=== PATIENT | female | born 1960 | race Caucasian/White ===

== ENCOUNTER → 2018-06-12 | Outpatient (CLI) | payer OTHER ==
[~2018-06-12] MED LIST: ALBU90OI INH; AMOCLA875 PO; AMOX500 PO; ASPI325 PO; ASPI325EC PO; ASPI81EC PO; AZIT250 PO; Adipex-P37.5 MG PO; Aspirin EC81 MG PO; BUPR150ER PO; CALCAVITDA PO; CALCIUM CITRAT1 EAC1 PO; CHOL10002 PO; CIPR500 PO; CIPRO500 MG PO; CRUTCH4 USE; CYCL10 PO; Cipro500 MG PO; Colace100 MG PO; DIPATR PO; Dyazide 37.5-21 EACH PO; FERR325 PO; FISH1000; Ferrous Sulfat325 M2 PO; Flomax0.4 MG PO; HYDACE5 PO; HYDCHL12.5 PO; HYDMOR2 PO; Hair, Skin & N1 EACH PO; Hydrochloroth12.5 MG PO; Hydrocodone-Ap1 EA23 PO; IBUP200 PO; IBUP600 PO; KETO10 PO; METO10 PO; MULVITMIND PO; Multiple Vitam1 EAC1 PO; NITR100CA PO; Norco 5-325 Ta1 EACH PO; OXYACE5T PO; OXYC5 PO; PRAHYD1AE TOP; PROM25 PO; Percocet 10-321 EACH PO; Percocet 5-3251 EACH PO; RXHYDMOR2 PO; RXOXYACE PO; TAMS.4ER PO; TRAZ100 PO; TRIA50 PO; VENL37.5 PO; Valium5 MG PO; Zofran Odt4 MG SL; Zofran8 MG PO
== END | disposition home or self-care (01) ==
LOC: PLD 10:50 → LAB SHORT 10:50
DX: L57.8 Other skin changes due to chronic exposure to nonionizing radiation (principal); D22.39 Melanocytic nevi of other parts of face
CPT/HCPCS: 88305; 88342

== ENCOUNTER 2019-01-22 10:35 | Day surgery (SDC) | payer OTHER ==
[~2019-01-22] VITALS: Ht 170.2 cm; Wt 113.2 kg
--- NOTE | 2019-01-22 11:09 | NUR ---
Ambulatory in Day Surgery Patient states colon prep results clear. History, Chart, Medications and Allergies reviewed before start of procedure. Lungs clear T/O to Auscultation. Patient confirms NPO status and agrees with scheduled surgery. Pre-Op teaching done. Pt verbalizes understanding. Patient States Post-Procedure ride home has been arranged.
--- NOTE | 2019-01-22 13:03 | NUR ---
01/22/19 1303 Miguelito Santo PATIENT DETERMINED TO BE ASA APPROPRIATE FOR PROPOFOL SEDATION PRIOR TO START OF PROCEDURE BY . 3-LEAD EKG REVIEWED WITH PHYSICIAN PRIOR TO START OF PROCEDURE.PATIENT CONFIRMS NPO STATUS AND AGREES WITH SCHEDULED PROCEDURE.History, Chart, Medications and Allergies reviewed before start of procedure.MONITOR INTACT WITH CONTINUOUS PULSE OXIMETRY AND INTERMITTENT BP.O2 VIA N/C INTACT THROUGHOUT SEDATION/PROCEDURE.
--- NOTE | 2019-01-22 14:00 | NUR ---
Patient up to Ambulate independently. Gait steady. Discharge instructions reviewed with patient. Patient verbalizes understanding. Copy given to patient to take home. Discharged via wheelchair to private car for ride home.
== END 2019-01-22 14:10 | disposition home or self-care (01) ==
LOC: ORSCMMR 10:35 → ORD 12:00 → ORSCMMR 14:10
PROVIDERS: Surgery
PROC: 0DBM8ZX Excision of Descending Colon, Via Natural or Artificial Opening Endoscopic, Diagnostic (ICD-10-PCS; principal; 2019-01-22 12:00)
DX: Z86.010 Personal history of colon polyps (principal); D12.4 Benign neoplasm of descending colon; K57.30 Diverticulosis of large intestine without perforation or abscess without bleeding; I10 Essential (primary) hypertension; F32.9 Major depressive disorder, single episode, unspecified; Z79.82 Long term (current) use of aspirin; Z79.899 Other long term (current) drug therapy
CPT/HCPCS: 88305; J2250; J2704; J7120

== ENCOUNTER 2024-06-05 06:52 | Day surgery (SDC) | payer OTHER ==
[~2024-06-05] VITALS: Ht 170.2 cm; Wt 123.1 kg
[~2024-06-05 06:52] MED LIST changes: +Lactated Ringer's 1,000 ML IV ONE
[2024-06-05] MEDS ORDERED: ATOR20 (08:00)
[2024-06-05] MEDS ORDERED: BUPR150ER (08:00)
[2024-06-05] MEDS ORDERED: TRAZ50 (08:01)
[2024-06-05] MEDS ORDERED: CALCIUM CIT 311 EAC7 (08:01)
[2024-06-05] MEDS ORDERED: VITAMIN D5000 UNIT (08:01)
[2024-06-05] MEDS ORDERED: propofoL 50 ML IV ONE ×3 (08:31→09:45)
[2024-06-05] MEDS ORDERED: Midazolam HCl 1MG / ML 2ML Vial ONE (08:31)
[2024-06-05] MEDS ORDERED: Lactated Ringer's 1,000 ML IV ONE (08:35)
--- NOTE | 2024-06-05 08:53 | NUR ---
06/05/24 0853 Coco Torres PT. VERBALIZES HAVING BACK PAIN RATING A "1". PT. VERBALIZES IT WAS THE WAY SHE WAS LAYING IN BED & HAS BEEN TOLD SHE HAS ARTHRITIS IS HER BACK.
--- NOTE | 2024-06-05 09:38 | NUR ---
06/05/24 0938 Coco Torres 6ML NACL USED FOR TRANSVERSE COLON POLYP REMOVAL
[2024-06-05 10:30] VITALS: BP 133/86
== END 2024-06-05 10:33 | disposition home or self-care (01) ==
LOC: ORSCSDS 06:52
PROVIDERS: Internal Medicine Gastroenterology
PROC: 0DBL8ZX Excision of Transverse Colon, Via Natural or Artificial Opening Endoscopic, Diagnostic (ICD-10-PCS; principal; 2024-06-05 08:45)
PROC: 0DBK8ZX Excision of Ascending Colon, Via Natural or Artificial Opening Endoscopic, Diagnostic (ICD-10-PCS; principal; 2024-06-05 08:45)
PROC: 0DBM8ZX Excision of Descending Colon, Via Natural or Artificial Opening Endoscopic, Diagnostic (ICD-10-PCS; principal; 2024-06-05 08:45)
PROC: 0DBN8ZX Excision of Sigmoid Colon, Via Natural or Artificial Opening Endoscopic, Diagnostic (ICD-10-PCS; principal; 2024-06-05 08:45)
DX: Z12.11 Encounter for screening for malignant neoplasm of colon (principal); Z86.0101 Personal history of adenomatous and serrated colon polyps; D12.3 Benign neoplasm of transverse colon; D12.2 Benign neoplasm of ascending colon; D12.4 Benign neoplasm of descending colon; K63.5 Polyp of colon; K57.30 Diverticulosis of large intestine without perforation or abscess without bleeding; K64.4 Residual hemorrhoidal skin tags; F17.210 Nicotine dependence, cigarettes, uncomplicated; E66.01 Morbid (severe) obesity due to excess calories; Z68.41 Body mass index [BMI] 40.0-44.9, adult
CPT/HCPCS: 88305; J2250; J2704; J7120

== ENCOUNTER → 2024-11-03 | Outpatient (CLI) | payer OTHER ==
[~2024-11-03] MED LIST changes: +ATOR20; +BUPR150ER; +CALCIUM CIT 311 EAC7; -Lactated Ringer's 1,000 ML IV ONE; +TRAZ50; +VITAMIN D5000 UNIT
[2024-11-04 19:51] LABS: COTININE, URN, SCREEN Negative
== END ==
LOC: LAB SHORT 11:30 → LAB 11:30
PROVIDERS: Internal Medicine
DX: Z01.89 Encounter for other specified special examinations (principal); Z68.43 Body mass index [BMI] 50.0-59.9, adult

== ENCOUNTER → 2025-04-15 | Outpatient (CLI) | payer OTHER ==
[2025-04-15 13:25] LABS: U Amphetamine Screen Not Detected; U Barbiturate Screen Not Detected; U Benzodiazapine Screen Not Detected; U Buprenorphine Screen Not Detected; U Cannabinoids Screen Not Detected; U Cocaine Screen Not Detected; U Methadone Screen Not Detected; U Methamphetamine Screen Not Detected; U Opiates Screen Not Detected; U Oxycodone Screen Not Detected; U Phencyclidine Screen Not Detected
== END | disposition home or self-care (01) ==
LOC: LAB SHORT 11:23 → LAB 11:23
PROVIDERS: Student in an Organized Health Care Education/Training Program
DX: E78.2 Mixed hyperlipidemia (principal); K21.9 Gastro-esophageal reflux disease without esophagitis; E66.813 Obesity, class 3; E66.01 Morbid (severe) obesity due to excess calories; Z68.41 Body mass index [BMI] 40.0-44.9, adult